=== PATIENT | male | born 1995 | race Caucasian/White ===

== ENCOUNTER 2022-10-28 20:21 | Emergency (ER) | payer OTHER, BC ==
[2022-10-28] MEDS ORDERED: LIDOCAINE 1% MPF 30 ML VIAL ONE (20:34)
[2022-10-28] MEDS ORDERED: CEFAZOLIN SODIUM 1 GM/VIAL ONE (20:54)
[2022-10-28] MEDS ORDERED: AMOX/K CLAV 875 MG TAB ONE (20:54)
[2022-10-28] MEDS ORDERED: LORazepam 2 MG/ML VIAL ONE (20:55)
[2022-10-28] MEDS ORDERED: MORPHINE 4 MG/ML SYR ONE (20:55)
[2022-10-28] MEDS ORDERED: ONDANSETRON 4 MG/2 ML VIAL ONE (20:55)
[2022-10-28 20:57] LABS: Absolute Lymphocytes (CBC) 2.7 K/uL (0.7-4.9); Hematocrit 46.2 % (39.6-49.0); Lymphocytes % 37.8 % (15.3-44.8); MCV 82.6 fL (80-100); MPV 8.1 fL (7.6-11.3); RBC Red Blood Cell Count 5.59 M/uL (4.33-5.43)
[2022-10-28 21:05] LABS: Potassium 3.5 mEq/L (3.5-5.1)
[2022-10-28] MEDS ORDERED: NA CHLORIDE 0.9% 50 ML ONE (21:13)
--- NOTE | 2022-10-28 21:23 | RAD REPORT ---
EXAM DESCRIPTION: RAD - Hand Right 3 View - 10/28/2022 8:56 pm CLINICAL HISTORY: Right hand pain status post injury FINDINGS: Soft tissue amputation distal aspect first distal phalanx. Several tiny avulsion fractures from the terminal tuft No dislocation
[2022-10-28 21:55] LABS: Protime INR 1.07
--- NOTE | 2022-10-28 22:04 | EDPHYS ---
Physician Documentation [facility] Name: Antony Florian Age: 27 yrs Sex: Male : 1995 Arrival Date: 10/28/2022 Time: 20:21 Bed 18 Private MD: ED Physician Carlos Tyson HPI: 10/28 20:24 This 27 yrs old Other Male presents to ER via Unassigned with complaints of Thumb sp4 Injury. 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 . Patient has amputation of the right thumb distal phalanx including distal half of the right thumb nail. . Patient is in moderate to severe pain on arrival also very anxious... Historical: - Allergies: 20:30 No Known Allergies; as6 - Home Meds: 20:30 None [Active]; as6 - PMHx: 20:30 None; as6 - PSHx: 20:30 STAPH; as6 - Immunization history:: Last tetanus immunization: up to date. - Social history:: Smoking status: Reported history of juuling and/or vaping. - Family history:: not pertinent. ROS: 21:55 Constitutional: Negative for fever, chills, and weight loss, Eyes: Negative for injury, sp4 pain, redness, and discharge, MS/Extremity: Positive right thumb injury positive right thumb distal phalanx partial amputation via dog bite 21:55 All other systems are negative. Exam: 21:55 Constitutional: This is a well developed, well nourished patient who is awake, alert, sp4 positive anxiety and distress secondary to pain Head/Face: Normocephalic, atraumatic. Eyes: Pupils equal round and reactive to light, extra-ocular motions intact. Lids and lashes normal. Conjunctiva and sclera are not injected. Cornea within normal limits. Periorbital areas with no swelling, redness, or edema. ENT: Nares patent. No nasal discharge, no septal abnormalities noted. Tympanic membranes are normal and external auditory canals are clear. Oropharynx with no redness, swelling, or masses, exudates, or evidence of obstruction, uvula midline. Mucous membranes moist. Neck: Trachea midline, no thyromegaly or masses palpated, and no cervical lymphadenopathy. Supple, full range of motion without nuchal rigidity, or vertebral point tenderness. Chest/axilla: Normal chest wall appearance and motion. Nontender with no deformity. No lesions are appreciated. Cardiovascular: Regular rate and rhythm with a normal S1 and S2. No gallops, murmurs, or rubs. Normal PMI, no JVD. No pulse deficits. Respiratory: Lungs have equal breath sounds bilaterally, clear to auscultation and percussion. No rales, rhonchi or wheezes noted. No increased work of breathing, no retractions or nasal flaring. Abdomen/GI: Soft, non-tender, with normal bowel sounds. No distension or tympany. No guarding or rebound. No evidence of tenderness throughout. Back: No spinal tenderness. No costovertebral tenderness. Male : Normal genitalia with no discharge or lesions. Skin: Warm, dry with normal turgor. Normal color with no rashes, no lesions, and no evidence of cellulitis. MS/ Extremity: Pulses equal, no cyanosis. Neurovascular intact. Full, normal range of motion. Right distal phalanx partial amputation via dog bite with also distal half of the thumbnail missing. Distal phalanx is exposed. There is apparent open fracture of the distal phalangeal tuft with associated jagged wound secondary to dog bite Neuro: Awake and alert, GCS 15, oriented to person, place, time, and situation. Cranial nerves II-XII grossly intact. Motor strength 5/5 in all extremities. Sensory grossly intact. Psych: Awake, alert, with orientation to person, place and time. Behavior, mood, and affect are within normal limits Vital Signs: 20:30 BP 122 / 84; Pulse 96; Resp 18 S; Temp 97.3(O); Pulse Ox 100% on R/A; Weight 90.72 kg as6 (R); Height 6 ft. 1 in. (R); Pain 9/10; 21:00 BP 124 / 80; Pulse 79; Resp 16; Pulse Ox 94% on R/A; jb4 22:00 BP 108 / 73; Pulse 71; Resp 16; Pulse Ox 95% on R/A; jb4 23:00 BP 109 / 93; Pulse 68; Resp 16; Pulse Ox 98% on R/A; jb4 20:30 Body Mass Index 26.39 (90.72 kg, 185.42 cm) as6 20:30 Pain Scale: Adult as6 Procedures: 21:55 Performed Wound care. Right thumb digital block was administered with lidocaine 1% 20 sp4 mL total. Wound was heavily irrigated with saline and an wet-to-dry dressing was applied. . MDM: 20:35 Patient medically screened. sp4 21:55 Differential Diagnosis Partial amputation, open fracture, dog bite. Data reviewed: sp4 vital signs, nurses notes, lab test result(s), radiologic studies, plain films. Consideration of Admission/Observation Escalation of care including admission/observation considered. 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 ED course: Patient was discussed with hand surgery service and [facility] and accepted for transfer for distal phalangeal amputation repair and revision of the right thumb. . 10/28 20:37 Order name: Basic Metabolic Panel; Complete Time: 21:39 sp4 10/28 20:37 Order name: CBC with Diff; Complete Time: 21:39 sp4 10/28 21:40 Order name: SARS RAPID; Complete Time: 23:35 sp4 10/28 21:40 Order name: PT-INR; Complete Time: 23:35 sp4 10/28 20:47 Order name: Hand Right 3 View XRAY; Complete Time: 21:39 4 10/28 20:37 Order name: Saline Lock; Complete Time: 20:58 sp4 10/28 20:37 Order name: Labs collected and sent; Complete Time: 20:58 4 10/28 20:38 Order name: Dressing - Wound; Complete Time: 21:38 sp4 10/28 20:38 Order name: Gloves, Sterile; Complete Time: 21:20 sp4 10/28 20:38 Order name: Setup Suture Tray; Complete Time: 20:58 sp4 Administered Medications: 20:57 Drug: Lidocaine Infiltration (1 %) 30 ml {Note: administered by ER physician.} Volume: jb4 20 ml; Route: Infiltration; 20:58 Drug: morphine IVP or IV 4 mg Route: IVP; Infused Over: 4 mins; Site: left antecubital; jb4 20:58 Drug: Ativan IVP 2 mg Route: IVP; Site: left antecubital; jb4 20:58 Drug: Ondansetron IVP 4 mg Route: IVP; Site: left antecubital; jb4 20:58 Drug: Amoxicillin-Clavulanate PO 875 mg Route: PO; jb4 21:13 Drug: ceFAZolin IVPB 1 grams Route: IVPB; Site: left antecubital; jb4 Disposition Summary: 10/28/22 22:04 Transfer Ordered Transfer Location: [facility]-System sp4 Reason: Higher level of care sp4 Condition: Stable sp4 Problem: new sp4 Symptoms: are unchanged sp4 Accepting Physician: Dr. Álvarez with [facility](10/28/22 23:48) jb4 Diagnosis - Soft tissue amputation distal aspect first distal phalanx of the right thumb, sp4 open fracture right thumb distal phalanx, dog bite to the right thumb Forms: - Medication Reconciliation Form sp4 - SBAR form sp4 Signatures: Dispatcher [employer] EDFiliberto Villa RN RN jb4 Travon Prieto RN RN as6 Carlos Tyson MD MD sp4 Corrections: (The following items were deleted from the chart) 23:48 22:04 Dr. Álvarez with [facility] sp4 jb4
--- NOTE | 2022-10-28 22:04 | ER ---
Nurse's Notes [facility] Name: Antony Florian Age: 27 yrs Sex: Male : 1995 Arrival Date: 10/28/2022 Time: 20:21 Bed 18 Private MD: Diagnosis: Soft tissue amputation distal aspect first distal phalanx of the right thumb, open fracture right thumb distal phalanx, dog bite to the right thumb Presentation: 10/28 20:30 Chief complaint: Patient states: pt was taking his dog on a walk and a stray dog came as6 and bite his right thumb. Coronavirus screen: At this time, the client does not indicate any symptoms associated with coronavirus-19. Ebola Screen: No symptoms or risks identified at this time. Initial Sepsis Screen: Does the patient meet any 2 criteria? No. Patient's initial sepsis screen is negative. Does the patient have a suspected source of infection? No. Patient's initial sepsis screen is negative. Risk Assessment: Do you want to hurt yourself or someone else? Patient reports no desire to harm self or others. Onset of symptoms was October 28, 2022. 20:30 Acuity: ANDREW 2 as6 20:30 Method Of Arrival: Ambulatory as6 Historical: - Allergies: 20:30 No Known Allergies; as6 - Home Meds: 20:30 None [Active]; as6 - PMHx: 20:30 None; as6 - PSHx: 20:30 STAPH; as6 - Immunization history:: Last tetanus immunization: up to date. - Social history:: Smoking status: Reported history of juuling and/or vaping. - Family history:: not pertinent. Screenin:00 [facility] ED Fall Risk Assessment (Adult) History of falling in the last 3 months, jb4 including since admission No falls in past 3 months (0 pts) Confusion or Disorientation No (0 pts) Score/Fall Risk Level 0 - 2 = Low Risk Oriented to surroundings, Maintained a safe environment. Abuse screen: Denies threats or abuse. Nutritional screening: No deficits noted. Tuberculosis screening: No symptoms or risk factors identified. Assessment: 20:32 General: Appears in no apparent distress. uncomfortable, Behavior is calm, cooperative. jb4 Pain: Complains of pain in dorsal aspect of distal phalanx of right thumb Pain does not radiate. Pain currently is 10 out of 10 on a pain scale. Neuro: Level of Consciousness is awake, alert, obeys commands, Oriented to person, place, time, situation. Cardiovascular: Patient's skin is warm and dry. Respiratory: Airway is patent Respiratory effort is even, unlabored, Respiratory pattern is regular, symmetrical. GI: No signs and/or symptoms were reported involving the gastrointestinal system. : No signs and/or symptoms were reported regarding the genitourinary system. EENT: No signs and/or symptoms were reported regarding the EENT system. Derm: Skin is pink, warm \T\ dry. Musculoskeletal: Amputation of tip of right thumb. 20:53 General: [employer] notified of dog bite. as6 21:19 Reassessment: Patient appears in no apparent distress at this time. Patient and/or jb4 family updated on plan of care and expected duration. Pain level reassessed. Patient is alert, oriented x 3, equal unlabored respirations, skin warm/dry/pink. 22:00 Reassessment: Patient appears in no apparent distress at this time. Patient and/or jb4 family updated on plan of care and expected duration. Pain level reassessed. Patient is alert, oriented x 3, equal unlabored respirations, skin warm/dry/pink. 23:19 Reassessment: Patient appears in no apparent distress at this time. Patient and/or jb4 family updated on plan of care and expected duration. Pain level reassessed. Patient is alert, oriented x 3, equal unlabored respirations, skin warm/dry/pink. Vital Signs: 20:30 BP 122 / 84; Pulse 96; Resp 18 S; Temp 97.3(O); Pulse Ox 100% on R/A; Weight 90.72 kg as6 (R); Height 6 ft. 1 in. (R); Pain 9/10; 21:00 BP 124 / 80; Pulse 79; Resp 16; Pulse Ox 94% on R/A; jb4 22:00 BP 108 / 73; Pulse 71; Resp 16; Pulse Ox 95% on R/A; jb4 23:00 BP 109 / 93; Pulse 68; Resp 16; Pulse Ox 98% on R/A; jb4 20:30 Body Mass Index 26.39 (90.72 kg, 185.42 cm) as6 20:30 Pain Scale: Adult as6 ED Course: 20:22 Patient arrived in ED. ja2 20:24 Carlos Tyson MD is Attending Physician. sp4 20:30 Arm band placed on. as6 20:32 Triage completed. as6 20:32 Filiberto Montesinos, RN is Primary Nurse. jb4 20:50 Initial lab(s) drawn, by tn, sent to lab. Inserted saline lock: 18 gauge in left jb4 antecubital area, using aseptic technique. Blood collected. 20:57 Hand Right 3 View XRAY In Process Unspecified. EDMS 23:46 Patient has correct armband on for positive identification. Bed in low position. Call jb4 light in reach. Side rails up X 1. Client placed on continuous cardiac and pulse oximetry monitoring. NIBP monitoring applied. 23:46 No provider procedures requiring assistance completed. Patient transferred, IV remains jb4 in place. Administered Medications: 20:57 Drug: Lidocaine Infiltration (1 %) 30 ml {Note: administered by ER physician.} Volume: jb4 20 ml; Route: Infiltration; 20:58 Drug: morphine IVP or IV 4 mg Route: IVP; Infused Over: 4 mins; Site: left antecubital; jb4 20:58 Drug: Ativan IVP 2 mg Route: IVP; Site: left antecubital; jb4 20:58 Drug: Ondansetron IVP 4 mg Route: IVP; Site: left antecubital; jb4 20:58 Drug: Amoxicillin-Clavulanate PO 875 mg Route: PO; jb4 21:13 Drug: ceFAZolin IVPB 1 grams Route: IVPB; Site: left antecubital; jb4 Medication: 23:46 VIS not applicable for this client. jb4 Outcome: 22:04 ER care complete, transfer ordered by . sp4 23:46 Transferred by ground EMS to [facility], Transfer form jb4 completed. X-rays sent w/ patient. 23:46 Condition: stable 23:46 Discharge instructions given to patient, family, Instructed on the need for transfer, Demonstrated understanding of instructions. 23:48 Patient left the ED. jb4 Signatures: Dispatcher [employer] EDMS Filiberto Montesinos, SHIRA SILVA jb4 Lola Gamboa ja2 Travon Prieto RN RN as6 Potepalov, Carlos, MD MD sp4
[2022-10-28 22:39] LABS: SARS-CoV-2 Antigen Rapid Res Negative (Negative)
[2022-10-29 01:07] VITALS: TEMP 97.3
[2022-10-29 01:10] VITALS: BP 109/93; O2SAT 98
== END 2022-10-28 23:48 | disposition short-term general hospital (02) ==
LOC: ER 20:21
DX: S62.521B Displaced fracture of distal phalanx of right thumb, initial encounter for open fracture (principal); W54.0XXA Bitten by dog, initial encounter; Z20.822 Contact with and (suspected) exposure to COVID-19
CPT/HCPCS: 85025; 80048; 36415; 85610; 73130; 96375; 96374; 99285; 87811; J2001; J2405; J0690